=== PATIENT | female | born 1990 | race Caucasian/White ===

== ENCOUNTER 2024-03-05 17:54 | Emergency (ER) | payer OTHER ==
[~2024-03-05] VITALS: Ht 175.3 cm; Wt 73.0 kg
[2024-03-05 17:58] VITALS: O2SAT 100
[2024-03-05] MEDS: SODIUM CHLORIDE 0.9% 1,000 ML IV ONE (19:18)
[2024-03-05] MEDS: ONDANSETRON HCL 4MG/2ML INJ IV STA (19:18)
[2024-03-05] MEDS: MORPHINE SULFATE 4 MG/ML INJ (FOR IV/IM USE) IV STA (19:18)
[2024-03-05 19:25] LABS: HEMATOCRIT. 47.3 % (36.0-48.0); HEMOGLOBIN. 15.8 g/dL (12.0-16.0); MEAN CORPUSCULAR HEMOGLOBIN 29.6 pg (28.0-32.0); MEAN CORPUSCULAR HGB CONC 33.3 g/dL (31.0-37.0); MEAN PLATELET VOLUME 7.2 fl (7.4-10.4); PLATELET 359 x1000/uL (130-400); RED BLOOD CELL COUNT 5.32 mill/uL (4.2-5.4); WHITE BLOOD COUNT 17.4 x1000/uL (4.5-11.0)
[2024-03-05 19:31] LABS: CARBON DIOXIDE 23 mEq/L (21-32); CHLORIDE 103 mEq/L (98-107); POTASSIUM 3.4 mEq/L (3.5-5.1); SODIUM 137 mEq/L (136-145)
[2024-03-05 19:32] LABS: CALCIUM 9.6 mg/dL (8.7-10.4)
[2024-03-05 19:36] LABS: CREATININE 0.7 mg/dL (0.6-1.0)
[2024-03-05 19:37] LABS: GLUCOSE 147 mg/dL (70-105); UREA NITROGEN BLOOD 14 mg/dL (9-23)
[2024-03-05 19:38] LABS: ALANINE AMINOTRANSFERASE 384 IU/L (10-49); ALBUMIN 4.7 g/dL (3.2-4.8); ASPARTATE AMINOTRANSFERASE 518 IU/L (<34)
[2024-03-05 19:39] LABS: BILIRUBIN DIRECT 0.8 mg/dL (<=3.0); BILIRUBIN TOTAL 1.5 mg/dL (0.1-1.0); PROTEIN TOTAL 7.5 g/dL (6.0-8.3)
[2024-03-05 19:43] LABS: B-HCG QUANTITATIVE < 1 mIU/mL (<3)
[2024-03-05 19:44] LABS: DIFFERENTIAL COMMENT 1
[2024-03-05 20:33] LABS: PLATELET ESTIMATE NORMAL
[2024-03-05] MEDS: PIPERACILLIN/TAZO 3.375G/50ML 50 ML IV STA (22:55)
[2024-03-05] MEDS: LACTATED RINGERS 1,000 ML IV ONE (22:56)
[2024-03-05 23:00] VITALS: TEMP 98.4
[2024-03-06] MEDS: MORPHINE SULFATE 4 MG/ML INJ (FOR IV/IM USE) IV ONE ×3 (00:01→08:16)
[2024-03-06] MEDS ORDERED: KETOROLAC 15MG/ML VIAL IV ONE (02:00)
[2024-03-06] MEDS: KETOROLAC 15MG/ML VIAL IV NR (04:34)
[2024-03-06 08:16] VITALS: BP 120/78; PULSE 79; RESP 16
== END 2024-03-06 08:56 | disposition left against medical advice (07) ==
LOC: ER 17:54
DX: K85.10 Biliary acute pancreatitis without necrosis or infection (principal)
CPT/HCPCS: 80076; 80048; 84702; 83690; 85025; 86850; 86900; 86901; 36415; 71045; 74176; 76705; 76830; 76856; 93005; 96361; 96365; 96375 ×2; 99285; 96376; J2405; J2543; J2270 ×2; J7030; Z7610 ×2; J1885